=== PATIENT | female | born 1975 | race Caucasian/White ===

== ENCOUNTER → 2017-01-14 | Outpatient (CLI) | payer BC ==
[~2017-01-14] MED LIST: ASPIRIN 325MG325 MG PO; ATENOLOL25 MG PO; DOXYCYCLINE MO100 MG PO; FLEXERIL10 M1 PO; IBU-8800 MG PO; IBUPROFEN 600M600 MG PO; PERCOCET 5/3251 EACH PO; PROTONIX 40MG T40 MG PO; PROTONIX40 MG PO; STERAPRED DS10 MG PO; TRAMADOL 50MG T50 MG PO; VOLTAREN75 MG PO; ZANTAC 150150 MG PO
--- NOTE | 2017-01-14 17:09 | RADIOLOGY REPORT PS360 ---
PROCEDURE: 2-D M-mode and color Doppler study INDICATIONS FOR THE TEST: Chest pain COPD Heart Murmur Tobacco SmokingX Palpitations Fatigue Syncope Edema HypertensionXDiabetes Mellitus Rheumatic Fever SOB [place] ObesityXHyperlipidemiaX Family History HD Additional History MVP PATIENT INFORMATION HEIGHT: 66 WEIGHT:200 GENDER: Female B/P:120/67 2-D/M-MODE INTERPRETATION: 2-D MEASUREMENTS OBSERVED VALUES IN CMS Right Ventricular Dimension (RVDd) 1.9 Interventricular Septum (Thickness)(IVsd) 1.0 Left Ventricular Internal Dimensions(LVIDd) 5.7 Left Ventricular Posterior Wall (Thickness)(LVPWd) .9 Aortic Root 2.8 Aortic Cusp Separation 1.4 Left Atrial Dimensions (LAD) 3.2 2D 1. Left atrium is normal size, left ventricle is normal size, there is no concentric left ventricular hypertrophy, visually estimated ejection fraction 55% with no obvious regional wall motion abnormality. 2. The right atrium and right ventricle are normal size and contractility. 3. The aortic, mitral and tricuspid valve are grossly normal, there is no obvious mitral valve prolapse seen. 4. The pulmonic valve is poorly visualized. 5. No significant pericardial effusion noted. DOPPLER INTERROGATION: Doppler interrogation of the aortic mitral and tricuspid valvular presence of trace mitral and tricuspid regurgitation of no hemodynamic significance, diastolic parameters are within normal range. CONCLUSION: 1. Normal left ventricular size, preserved left ventricular systolic function, visually estimated ejection fraction 55% with no obvious regional wall motion abnormality, diastolic parameters are within normal range. 2. No obvious mitral valve prolapse seen. 3. Trace mitral and tricuspid regurgitation. 4. No significant pericardial effusion noted.
== END ==
LOC: RT 01-11 14:30
DX: I34.1 Nonrheumatic mitral (valve) prolapse (principal)